=== PATIENT | male | born 1990 | race Native Hawaiian/Other Pacific Islander ===

== ENCOUNTER 2019-09-24 17:22 | Emergency (ER) | payer OTHER ==
[~2019-09-24] VITALS: Ht 185.4 cm; Wt 136.1 kg
[2019-09-24 18:36] LABS: POTASSIUM 3.7 mmol/L (3.6-5.2)
[2019-09-24 18:43] LABS: PLATELET COUNT 328 K/uL (142-355)
[2019-09-24 19:40] VITALS: BP 128/88; TEMP 98.2
== END 2019-09-24 19:40 | disposition home or self-care (01) ==
LOC: ED 17:22
PROVIDERS: Emergency Medicine
DX: J11.1 Influenza due to unidentified influenza virus with other respiratory manifestations (principal)
CPT/HCPCS: 80053; 85027; 87502; 87651; 94664; 96372; 99283; J2930